=== PATIENT | female | born 1965 | race African-American/Black ===

== ENCOUNTER 2023-01-12 17:41 | Emergency (ER) | payer OTHER, SELFPAY ==
[2023-01-12] MEDS ORDERED: diphenhydrAMINE 50 MG/ML VIAL ONE (19:49)
[2023-01-12] MEDS ORDERED: Metoclopramide HCl 10 MG/2 ML VIAL ONE (19:50)
[2023-01-12] MEDS ORDERED: Ketorolac Tromethamine 30 MG/ML VIAL ONE (19:50)
[2023-01-12] MEDS ORDERED: Dexamethasone 10 MG/ML VIAL ONE (19:50)
== END 2023-01-12 21:00 | disposition home or self-care (01) ==
LOC: CSHERS 17:41
DX: U07.1 COVID-19 (principal); I10 Essential (primary) hypertension; E11.9 Type 2 diabetes mellitus without complications; F17.290 Nicotine dependence, other tobacco product, uncomplicated; Z79.899 Other long term (current) drug therapy
CPT/HCPCS: 71045; 96361; 96374; 96375; J1100; J1200; J1885; J2765

== ENCOUNTER 2025-01-22 09:20 | Outpatient (CLI) | payer OTHER | END 2025-01-22 09:21 | disposition home or self-care (01) | LOC: CSHMAMMO 09:20 | PROVIDERS: ATTEND Family Medicine | DX: Z12.31 Encounter for screening mammogram for malignant neoplasm of breast (principal); Z80.3 Family history of malignant neoplasm of breast | CPT/HCPCS: 77063; 77067 ==